=== PATIENT | male | born 2000 | race Caucasian/White ===

== ENCOUNTER 2020-02-03 09:16 | Outpatient (CLI) | payer BC, SELFPAY ==
[2020-02-03 09:41] LABS: Basophils Percent Auto 0.5 % (0.2-1.2); Eosinophils Absolute Auto 0.3 K/mm3 (0-0.3); Eosinophils Percent Auto 3.3 % (0-4.4); Hematocrit 44.9 % (42.0-52.0); Hemoglobin 15.4 g/dL (14.0-18.0); Immature Granulocyte Absolute 0.02 K/mm3 (0.00-0.031); Immature Granulocyte Percent A 0.2 % (0-0.5); Lymphocytes Absolute Auto 2.41 K/mm3 (0.9-3.2); Lymphocytes Percent Auto 29.9 % (18.3-44.2); Mean Corpuscular HGB Conc 34.3 g/dl (32-36); Mean Corpuscular Hemoglobin 29.8 pg (26-34); Mean Corpuscular Volume 86.8 fl (80-100); Mean Platelet Volume 9.9 fl (7.4-10.4); Monocytes Absolute Auto 0.9 K/mm3 (0.1-0.6); Monocytes Percent Auto 11.2 % (2.6-8.5); Neutrophils Absolute Auto 4.4 K/mm3 (1.3-6.7); Neutrophils Percent Auto 54.9 % (45.5-73.1); Platelet Count Result 254 k/mm3 (150-375); Red Blood Count 5.17 M/mm3 (4.6-6.20); Red Cell Distribution Width 11.9 % (11.5-14.5); White Blood Count 8.1 K/mm3 (4.5-10.0)
[2020-02-03 11:48] LABS: Alanine Aminotransferase 22 U/L (4-50); Albumin Level 4.6 g/dL (3.5-5.1); Alkaline Phosphatase 66 U/L (38-126); Aspartate Amino Transferase 24 U/L (17-59)
[2020-02-03 11:49] LABS: Blood Urea Nitrogen 11 mg/dL (9-20); Calcium 9.6 mg/dL (8.4-10.2); Carbon Dioxide 32 mmol/L (22-30); Chloride 102 mmol/L (98-107); Estimated Glomerular Filt Rate > 60; Glucose 97 mg/dL (75-110); Potassium 3.8 mmol/L (3.4-5.0)
[2020-02-03 11:50] LABS: Anion Gap 8 mmol/L (8-16); Bilirubin,Total 0.7 mg/dL (0.2-1.3); Sodium 142 mmol/L (137-145)
[2020-02-03 12:35] LABS: Cholesterol 133 mg/dL (0-200); HDL Direct 32 mg/dL; Triglycerides 81 mg/dL (<150)
[2020-02-03 12:41] LABS: LDL Cholesterol Direct 89 mg/dL
== END 2020-02-03 09:17 | disposition home or self-care (01) ==
PROVIDERS: PCP Internal Medicine; Visit Provider Clinical Nurse Specialist
DX: Z13.228 Encounter for screening for other metabolic disorders (principal); Z13.220 Encounter for screening for lipoid disorders
CPT/HCPCS: 36415; 80053; 80061; 85025

== ENCOUNTER 2020-05-18 10:08 | Outpatient (CLI) | payer BC, SELFPAY | END 2020-05-18 10:09 | disposition home or self-care (01) | PROVIDERS: PCP Internal Medicine; Visit Provider Clinical Nurse Specialist | DX: J02.9 Acute pharyngitis, unspecified (principal) | CPT/HCPCS: 87081; 87880 ==

== ENCOUNTER → 2020-12-10 08:24 | Outpatient (CLI) | payer BC, SELFPAY ==
[2020-12-10 20:11] LABS: SARS-CoV-2 RNA PCR Negative
== END ==
PROVIDERS: PCP Internal Medicine; Visit Provider Clinical Nurse Specialist
DX: R68.89 Other general symptoms and signs (principal); Z20.822 Contact with and (suspected) exposure to COVID-19
CPT/HCPCS: C9803; U0003; U0005

== ENCOUNTER 2021-02-13 13:19 | Emergency (ER) | payer BC, SELFPAY ==
--- NOTE | 2021-02-13 13:23 | ED.GENADULT ---
HPI - General Adult General Chief complaint: Upper Respiratory Infection Stated complaint: sore throat Source: patient Mode of arrival: ambulatory Limitations: no limitations History of Present Illness HPI narrative: Patient is a 20-year-old male who presents to the [facility] via POV for evaluation of a sore throat that began 2 days ago. Additionally, he reports stomachache, generalized headache, and fever. Reports maximum temperature to be 100.8. NyQuil, Cold-Eeze, warm honey/tea, and cold water provides mild temporary relief. Swallowing worsens throat pain. Patient has a history of strep throat and states today symptoms are identical to previous episodes. Denies known exposure to sick contacts. Patient reports he is vaccinated against Covid. He states his throat pain is constant and sharp in nature Related Data Home Medications Medication Instructions Recorded Confirmed cetirizine 10 mg capsule 10 mg PO DAILY PRN 09/09/20 02/13/21 Allergies Allergy/AdvReac Type Severity Reaction Status Date / Time No Known Allergies Allergy Verified 02/13/21 13:30 Review of Systems Review of Systems: Pertinent negatives: chills, poor p.o. intake, myalgias, flu-like symptoms, ear pain/drainage, sinus trouble, nasal congestion, rhinorrhea, lymphadenopathy, dizziness, LOC, inability to swallow, drooling, hoarseness, halitosis, nausea, vomiting, diarrhea, cough, wheezing, sob, chest pain, heart murmurs, and heart palpations. [facility] Past Medical History Medical History (Updated 02/13/21 @ 13:59 by FLORA Acosta, CIELO) ADHD Headache Surgical History Surgical History History of placement of ear tubes [place] teeth removed Family History Family History Mother CHF (congestive heart failure) COPD (chronic obstructive pulmonary disease) GERD (gastroesophageal reflux disease) Sleep apnea Hypertension Heart disease Diabetes mellitus Grandparent Cerebrovascular accident Hypertension Social History Social History Smoking status: Never smoker Second hand tobacco smoke exposure: No Alcohol intake: never Substance use: never Substance use type: does not use Comments See discharge instructions for detailed information. If you have been prescribed a medication today, be sure to take/use the medication only as prescribed. You may take Tylenol/ibuprofen as needed for pain and swelling. Take only as directed per packaging label. Follow-up with your primary care provider as recommended. Exam Narrative: GENERAL: Well-appearing, well-nourished, and in no acute distress. HEAD: Normocephalic, atraumatic. No sinus tenderness or facial swelling appreciated. EYES: PERRLA and EOMI. No evidence of erythema, swelling, or drainage. ENT: Bilateral external ears and ear canals normal. Bilateral TMs are normal.No TM perforation. Nares clear, no rhinorrhea or epistaxis. Bilateral turbinates without erythema/ swelling. Mucous membranes moist and pink. Uvula is midline without erythema and swelling. Bilateral tonsils are moderately erythematous and moderately edematous. No evidence of petechial rash, cobblestoning, lesions, ulcers, exudates, peritonsillar abscess, tenting, or drooling. Breath odor and voice normal. NECK: Supple. No nuchal rigidity appreciated. Bilateral submandibular lymphadenopathy appreciated. CHEST: Bilateral lung alonzo are clear to auscultation. No respiratory distress. No evidence of cough or pleuritic cp upon examination. HEART: Regular rate and rhythm. No murmur, gallop, or rub heard. EXTREMITIES: Normal range of motion. No edema. SKIN: Warm, dry, no rash. NEURO: No focal deficits. Alert and oriented x3. Course Vital Signs Vital signs: Due to an elevated blood pressure, I had a detailed discussion with
[2021-02-13 13:31] VITALS: BP 139/79; PULSE 127; RESP 16; TEMP 37.3; O2SAT 98
== END 2021-02-13 14:05 | disposition home or self-care (01) ==
PROVIDERS: Emergency Provider Nurse Practitioner Family; PCP Internal Medicine
DX: J02.9 Acute pharyngitis, unspecified (principal)
CPT/HCPCS: 87081; 87880; 99213; G0463

== ENCOUNTER 2022-03-02 08:44 | Emergency (ER) | payer SELFPAY ==
[2022-03-02 09:08] VITALS: BP 136/94; PULSE 91; RESP 16; TEMP 36.6; O2SAT 99
--- NOTE | 2022-03-02 09:21 | ED.UPPEXIN ---
HPI - Extremity Injury (Upper) General Stated Complaint: right arm pain Time Seen by Provider: 03/02/22 09:10 Source: patient Mode of arrival: ambulatory Limitations: no limitations History of Present Illness HPI narrative: Ezio is a 21-year-old male patient presenting to clinic today with complaints right-sided neck/ arm pain. He reports that pain starts in the right side of the neck and radiates into the right arm. He reports that the pain is numbness and tingling. Related Data Home Medications Medication Instructions Recorded Confirmed cetirizine 10 mg capsule (All Day 10 mg PO DAILY PRN Congestion 09/09/20 02/13/21 Allergy (cetirizine)) Allergies Allergy/AdvReac Type Severity Reaction Status Date / Time amoxicillin Allergy Rash Verified 02/18/21 10:53 Review of Systems Review of Systems: Pertinent positives per HPI. Patient denies any fever, chills, rash, headache, visual changes, dizziness, cough, runny nose, sore throat, shortness of breath, chest pain, palpitations, nausea, vomiting, diarrhea, constipation, abdominal pain, or any urinary issues. PMFSH Past Medical History Medical History ADHD Headache Surgical History Surgical History History of placement of ear tubes [place] teeth removed Family History Family History Mother CHF (congestive heart failure) COPD (chronic obstructive pulmonary disease) GERD (gastroesophageal reflux disease) Sleep apnea Hypertension Heart disease Diabetes mellitus Grandparent Cerebrovascular accident Hypertension Social History Social History Smoking status: Never smoker Second hand tobacco smoke exposure: No Alcohol intake: never Substance use: never Substance use type: does not use Comments At the time of my signature, I reviewed and agree with the nursing past medical, surgical, social, and family history. There is no relevant family history pertinent to the patient complaint. Exam Narrative: General: Well-developed, well nourished, in no apparent distress Head: Normocephalic, atraumatic. Cardio: Regular rate and rhythm, s1 and s2 normal, no murmur appreciated. Resp: Clear to auscultation bilaterally, no rhonchi, rales, wheezing or rubs. Musculoskeletal: No deformity, tender to palpation over the cervical portion of the trapezius muscle, pain with turning head side to side over the right side of his neck, pain radiating down into the right shoulder and arm, right hand grasp weaker than left hand grasp, grossly normal range of motion, muscle strength strong and equal, peripheral pulse strong, Negative Tinel's,no edema, no cyanosis, normal gait and station Course Course Emergency Course: Portions of this record may have been created with voice recognition software. Level of Care: Express Care Visit Vital Signs Vital signs: Vital Signs Temperature 36.6 C 03/02/22 09:08 Pulse Rate 91 03/02/22 09:08 Respiratory Rate 16 03/02/22 09:08 Blood Pressure 136/94 H 03/02/22 09:08 Pulse Oximetry 99 03/02/22 09:08 Oxygen Delivery Room Air 03/02/22 09:08 Temperature 36.6 C 03/02/22 09:08 Pulse Rate 91 03/02/22 09:08 Respiratory Rate 16 03/02/22 09:08 Blood Pressure 136/94 H 03/02/22 09:08 Pulse Oximetry 99 03/02/22 09:08 Oxygen Delivery Room Air 03/02/22 09:08 Vital signs reviewed MDM - Extremity Injury (Upper) MDM Narrative Medical decision making narrative: At the time of visit patient is resting comfortably on exam table. I suspect that he has a strain of the cervical portion of the trapezius muscle. supportive measures were discussed with the patient and he voiced understanding of discharge instructions and agrees to treatment plan. Karly
== END 2022-03-02 09:33 | disposition home or self-care (01) ==
PROVIDERS: Emergency Provider Nurse Practitioner Family; PCP Internal Medicine
DX: S16.1XXA Strain of muscle, fascia and tendon at neck level, initial encounter (principal); X58.XXXA Exposure to other specified factors, initial encounter
CPT/HCPCS: 99213; G0463

== ENCOUNTER 2022-05-16 15:18 | Outpatient (CLI) | payer OTHER, SELFPAY ==
[2022-05-16 20:30] LABS: Alanine Aminotransferase 22 U/L (6-50); Albumin Level 4.9 g/dL (3.5-5.1); Alkaline Phosphatase 64 U/L (38-126); Anion Gap 5 mmol/L (8-16); Aspartate Amino Transferase 30 U/L (17-59); Bilirubin,Total 0.5 mg/dL (0.2-1.3); Blood Urea Nitrogen 16 mg/dL (9-20); Calcium 9.2 mg/dL (8.4-10.2); Carbon Dioxide 29 mmol/L (22-30); Chloride 101 mmol/L (98-107); Estimated Glomerular Filt Rate > 60; Glucose 89 mg/dL (65-110); Potassium 3.8 mmol/L (3.4-5.0); Sodium 135 mmol/L (137-145)
[2022-05-16 21:01] LABS: HIV 1/2 Ab P24 Ag Result Negative (Negative)
[2022-05-16 21:13] LABS: Basophils Percent Auto 0.4 % (0.2-1.2); Eosinophils Absolute Auto 0.3 K/mm3 (0-0.3); Eosinophils Percent Auto 3.3 % (0-4.4); Hematocrit 44.2 % (42.0-52.0); Immature Granulocyte Absolute 0.02 K/mm3 (0.00-0.031); Immature Granulocyte Percent A 0.3 % (0-0.5); Lymphocytes Absolute Auto 2.72 K/mm3 (0.9-3.2); Lymphocytes Percent Auto 35.6 % (18.3-44.2); Mean Corpuscular HGB Conc 33.9 g/dl (32-36); Mean Corpuscular Hemoglobin 29.1 pg (26-34); Mean Corpuscular Volume 85.8 fl (80-100); Mean Platelet Volume 10.3 fl (7.4-10.4); Monocytes Absolute Auto 0.6 K/mm3 (0.1-0.6); Monocytes Percent Auto 8.2 % (2.6-8.5); Neutrophils Percent Auto 52.2 % (45.5-73.1); Platelet Count Result 254 k/mm3 (150-375); Red Blood Count 5.15 M/mm3 (4.6-6.20); Red Cell Distribution Width 11.8 % (11.5-14.5); White Blood Count 7.6 K/mm3 (4.5-10.0)
[2022-05-16 21:14] LABS: Hepatitis C Virus Antibody Negative (Negative)
[2022-05-17 13:55] LABS: Rapid Plasma Reagin Non-Reactive (NonReactive)
[2022-05-24 00:49] LABS: Herpes Simplex Type 1 DNA PCR NOT DETECTED; Herpes Simplex Type 2 DNA PCR NOT DETECTED
== END 2022-05-16 15:19 | disposition home or self-care (01) ==
LOC: ANHGOSHLAB 15:19
PROVIDERS: PCP Internal Medicine; Visit Provider Clinical Nurse Specialist
DX: R42 Dizziness and giddiness (principal); Z72.51 High risk heterosexual behavior; Z13.228 Encounter for screening for other metabolic disorders
CPT/HCPCS: 36415; 80053; 84443; 85025; 86592; 86703; 86803; 87491; 87529; 87591; G0432

== ENCOUNTER 2023-06-01 11:21 | Emergency (ER) | payer BC, SELFPAY ==
--- NOTE | 2023-06-01 11:25 | ED.UPPEXIN ---
HPI - Extremity Injury (Upper) General Chief Complaint: Extremity Injury, Upper Stated Complaint: Shoulder pain Time Seen by Provider: 06/01/23 11:25 Source: patient Mode of arrival: ambulatory Limitations: no limitations History of Present Illness HPI narrative: Patient is a 22-year-old male who presents with right shoulder pain for 1 week. Patient states he was at work lifting heavy and larger objects for 2 days in a row and pain has not improved. Patient denies any decreased range of motion, tingling, weakness. Has been taking Tylenol and ibuprofen. Related Data Home Medications Medication Instructions Recorded Confirmed cetirizine 10 mg capsule (All Day 10 mg PO DAILY PRN Congestion 09/09/20 06/01/23 Allergy (cetirizine)) Allergies Allergy/AdvReac Type Severity Reaction Status Date / Time amoxicillin Allergy Rash Verified 02/21/23 11:13 Review of Systems Review of Systems: All systems reviewed & are unremarkable except as noted in HPI and below Constitutional: Constitutional: Denies body ache(s), Denies chills, Denies fatigue, Denies fever(s), Denies headache(s), Denies malaise and Denies weakness Eyes: Eyes: Denies blurry vision, Denies irritation and Denies loss of vision ENT: Denies otalgia, Denies headache(s), Denies nasal discharge, Denies sinus pain and Denies sore throat Cardiovascular: Cardiovascular: Denies chest pain, Denies irregular heart rhythm and Denies dyspnea Respiratory: Respiratory: Denies dyspnea Gastrointestinal: Gastrointestinal: Denies abdominal pain, Denies melena, Denies hematochezia, Denies diarrhea, Denies nausea and Denies vomiting Musculoskeletal: Musculoskeletal: Denies back pain, Denies myalgias and Reports arthralgias Integumentary/Breasts: Skin/Breast: Denies pruritus and Denies rash Neurologic: Denies headache(s), Denies loss of vision and Denies weakness Psychiatric: Psychiatric: Reports no additional psychiatric complaints Endocrine: Endocrine: Denies fatigue PMFSH Past Medical History Medical History ADHD Headache Surgical History Surgical History History of placement of ear tubes [place] teeth removed Family History Family History Mother CHF (congestive heart failure) COPD (chronic obstructive pulmonary disease) GERD (gastroesophageal reflux disease) Sleep apnea Hypertension Heart disease Diabetes mellitus Grandparent Cerebrovascular accident Hypertension Social History Social History Social History: Caffeine-daily Smoking status: Never smoker Tobacco type: e-cigarettes/vaping Second hand tobacco smoke exposure: No Alcohol intake: never Substance use: current Substance use type: marijuana Lack of Transportation: No Lack of Food: Never True Current Housing: I Have Housing Concerned About Future Housing: No Difficulty Paying Gas/Electric Bills: No Difficulty Paying for Meds: No Currently Unemployed: No Education: High School Diploma/GED Difficulty w/ Childcare or Family Care: No Living arrangements: with family Additional living arrangements comments: sister lives with him. Occupation/Education: occupation Gender identity (if verbalized by the patient): Male Sexual Orientation (if Verbalized by the Patient): Lesbian, [place], or Homosexual Comments At time of signature, agree with nursing past medical, surgical, social and family history. There is no relevant family history pertinent to the presenting complaint. Exam Const: General: cooperative, healthy appearing, comfortable, no acute distress and well nourished Nutritional Appearance: well nourished Orientation/consciousness: patient oriented x3 Limitations: no limitations HENMT: Head: normal to inspection, normocephalic
[2023-06-01 11:40] VITALS: BP 126/82; PULSE 86; RESP 16; TEMP 37.3; O2SAT 100
== END 2023-06-01 12:51 | disposition home or self-care (01) ==
PROVIDERS: Emergency Provider Nurse Practitioner Family; PCP Internal Medicine
DX: S46.911A Strain of unspecified muscle, fascia and tendon at shoulder and upper arm level, right arm, initial encounter (principal); X50.0XXA Overexertion from strenuous movement or load, initial encounter; Y99.0 Civilian activity done for income or pay
CPT/HCPCS: 99213; G0463